=== PATIENT | male | born 1980 | race Caucasian/White ===

== ENCOUNTER 2024-04-06 17:00 | Emergency (ER) | payer SELFPAY ==
[~2024-04-06] VITALS: Ht 157.5 cm; Wt 68.0 kg
[2024-04-06 17:00] VITALS: BP_SYST 118; PULSE 87; RESP 19; TEMP 97.2
[2024-04-06] MEDS ORDERED: ONDANSETRON 4 MG ODT TAB PO ONE (18:00)
== END 2024-04-06 18:03 ==
LOC: SED 17:00
DX: Z02.89 Encounter for other administrative examinations (principal); F10.129 Alcohol abuse with intoxication, unspecified; Y90.6 Blood alcohol level of 120-199 mg/100 ml
CPT/HCPCS: 99283; Q0162